=== PATIENT | female | born 1985 | race African-American/Black ===

== ENCOUNTER 2019-04-26 08:57 | Outpatient (CLI) | payer SELFPAY ==
--- NOTE | ~2019-04-26 | US_ITS ---
EXAMINATION: US soft tissue head and neck DATE: 04/26/2019 09:22 INDICATION: Right submandibular swelling. TECHNIQUE: Multiple grayscale and Doppler ultrasound images of the neck were obtained. COMPARISON: None FINDINGS: The submandibular glands are normal. A normal right submandibular lymph node is noted in th e patient's area of concern. IMPRESSION: 1. No abnormal mass or lymphadenopathy. Reviewed, dictated and finalized at location A. [facility]
== END 2019-04-26 08:58 | disposition home or self-care (01) ==
LOC: ANHIMG 09:03
PROVIDERS: PCP Emergency Medicine; Visit Provider Emergency Medicine
DX: R22.1 Localized swelling, mass and lump, neck (principal)
CPT/HCPCS: 76536